=== PATIENT | male | born 1960 | race African-American/Black ===

== ENCOUNTER 2016-06-10 18:11 | Emergency (ER) | payer BC ==
[2016-06-10 18:15] VITALS: BP 149/89
--- NOTE | 2016-06-10 18:39 | ER Document Report ---
ED Medical Screen (RME) - General Stated Complaint: URINARY ISSUE Mode of Arrival: Ambulatory Information source: Patient Notes: Patient reports having blood draining from his penis earlier today. Since then patient's had pain with urination. Patient does complain of pressure to right back area for the past week. hx: Kidney stones I have greeted and performed a rapid initial assessment of this patient. A comprehensive ED assessment and evaluation of the patient, analysis of test results and completion of the medical decision making process will be conducted by additional ED providers. TRAVEL OUTSIDE OF THE [place] IN LAST 30 DAYS: No - Related Data Allergies/Adverse Reactions: No Known Allergies Allergy (Verified 06/10/16 18:37) Past Medical History - Social History Family history: Arthritis, CAD, CVA, DM, Hyperlipidemia, Hypertension - Past Medical History Cardiac Medical History: Reports: Hx Hypercholesterolemia, Hx Hypertension Pulmonary Medical History: Denies: Hx Tuberculosis Neurological Medical History: Reports: Hx Migraine GI Medical History: Reports: Hx Gastritis, Hx Ulcer - 10 years Musculoskeltal Medical History: Reports Hx Arthritis, Reports Hx Musculoskeletal Trauma - shoulder knee injuries Traumatic Medical History: Reports: Hx Fractures - shoulder Past Surgical History: Reports: Hx Orthopedic Surgery - right knee surgery x3. Denies: Hx Appendectomy, Hx Bowel Surgery, Hx Cholecystectomy, Hx Coronary Artery Bypass Graft, Hx Gastric Bypass Surgery, Hx Herniorrhaphy, Hx Tonsillectomy - Immunizations Immunizations up to date: Yes Hx Diphtheria, Pertussis, Tetanus Vaccination: Yes Physical Exam - Vital signs Vitals: Temp Pulse Resp BP Pulse Ox 98.1 F 82 18 149/89 H 97 06/10/16 18:14 06/10/16 18:14 06/10/16 18:14 06/10/16 18:14 06/10/16 18:14 - Back Back: CVA tenderness - Right side Course - Vital Signs Vital signs: Temp Pulse Resp BP Pulse Ox 98.1 F 82 18 149/89 H 97 06/10/16 18:14 06/10/16 18:14 06/10/16 18:14 06/10/16 18:14 06/10/16 18:14
[2016-06-10 19:06] LABS: ABSOLUTE EOSINOPHILS # (AUTO) 0.1 10^3/uL (0.0-0.6); ABSOLUTE LYMPHOCYTES (AUTO) 1.8 10^3/uL (0.5-4.7); ABSOLUTE MONOCYTES (AUTO) 0.4 10^3/uL (0.1-1.4); ABSOLUTE NEUT (AUTO) 2.3 10^3/uL (1.7-8.2); BASOPHILS % (AUTO) 0.5 % (0-2); EOSINOPHILS % (AUTO) 1.7 % (0-6); HEMATOCRIT 39.9 % (37.9-51.0); HEMOGLOBIN 13.6 g/dL (13.5-17.0); HGB HCT DIFFERENCE 0.9; LYMPHOCYTES % (AUTO) 39.5 % (13-45); MEAN CORPUSCULAR HEMOGLOBIN 29.5 pg (27.0-33.4); MEAN CORPUSCULAR HGB CONC 34.1 g/dL (32.0-36.0); MEAN CORPUSCULAR VOLUME 86 fl (80-97); MONOCYTES % (AUTO) 9.1 % (3-13); RED BLOOD COUNT 4.62 10^6/uL (4.35-5.55); RED CELL DISTRIBUTION WIDTH 14.2 % (11.5-14.0); SEGMENTED NEUTROPHILS % (AUTO) 49.2 % (42-78); WHITE BLOOD COUNT 4.7 10^3/uL (4.0-10.5)
[2016-06-10 19:16] LABS: APPEARANCE,URINE CLEAR; BILIRUBIN,URINE NEGATIVE (NEGATIVE); GLUCOSE, URINE NEGATIVE (NEGATIVE); KETONES,URINE NEGATIVE (NEGATIVE); LEUKOCYTE ESTERASE,URINE NEGATIVE (NEGATIVE); NITRITE,URINE NEGATIVE (NEGATIVE); PROTEIN,URINE NEGATIVE (NEGATIVE); URINE SPECIFIC GRAVITY 1.014
[2016-06-10 19:26] LABS: ALANINE AMINOTRANSFERASE 16 U/L (21-72); ALBUMIN 4.2 g/dL (3.5-5.0); ALKALINE PHOSPHATASE 136 U/L (38-126); ANION GAP 7 (5-19); ASPARTATE AMINO TRANSFERASE 15 U/L (17-59); BILIRUBIN,TOTAL 0.6 mg/dL (0.2-1.3); BLOOD UREA NITROGEN 10 mg/dL (7-20); CALCIUM 9.6 mg/dL (8.4-10.2); CARBON DIOXIDE 30 mmol/L (22-30); CHLORIDE 107 mmol/L (98-107); CREATININE RESULT 0.86 mg/dL (0.52-1.25); GLUCOSE 95 mg/dL (75-110); POTASSIUM 3.9 mmol/L (3.6-5.0); TOTAL PROTEIN 7.5 g/dL (6.3-8.2)
[2016-06-10 19:34] LABS: PROTHROMBIN TIME 13.7 SEC (11.4-15.4)
[2016-06-10 19:35] LABS: PARTIAL THROMBOPLASTIN TIME 28.3 SEC (23.5-35.8)
[2016-06-10 20:36] LABS: CHLAM PCR NOT DETECTED (NOT DETECT)
--- NOTE | 2016-06-10 23:09 | ER Document Report ---
ED General - General Chief Complaint: Urinary Problem Stated Complaint: URINARY ISSUE Mode of Arrival: Ambulatory Notes: Patient is a 56-year-old male with past history of hypertension and kidney stones who presents after urinating blood earlier today. Denies a history of similar symptoms in the past. Denies any complaints at time of my assessment. Denies any abdominal pain, flank pain, fever, or dysuria. Denies any penile lesions, testicular pain. He has not seen his primary care doctor regarding today's concerns. Nothing improves or worsens his symptoms. TRAVEL OUTSIDE OF THE [place] IN LAST 30 DAYS: No - Related Data Allergies/Adverse Reactions: No Known Allergies Allergy (Verified 06/10/16 18:37) Past Medical History - General Information source: Patient - Social History Smoking Status: Current Every Day Smoker Chew tobacco use (# tins/day): No Frequency of alcohol use: None Drug Abuse: None Lives with: Spouse/Significant other Family History: Arthritis, CAD, CVA, DM, Hyperlipidemia, Hypertension Patient has suicidal ideation: No Patient has homicidal ideation: No - Past Medical History Cardiac Medical History: Reports: Hx Hypercholesterolemia, Hx Hypertension Pulmonary Medical History: Denies: Hx Tuberculosis Neurological Medical History: Reports: Hx Migraine Renal/ Medical History: Denies: Hx Peritoneal Dialysis GI Medical History: Reports: Hx Gastritis, Hx Ulcer - 10 years Musculoskeltal Medical History: Reports Hx Arthritis, Reports Hx Musculoskeletal Trauma - shoulder knee injuries Traumatic Medical History: Reports: Hx Fractures - shoulder Past Surgical History: Reports: Hx Orthopedic Surgery - right knee surgery x3. Denies: Hx Appendectomy, Hx Bowel Surgery, Hx Cholecystectomy, Hx Coronary Artery Bypass Graft, Hx Gastric Bypass Surgery, Hx Herniorrhaphy, Hx Tonsillectomy - Immunizations Immunizations up to date: Yes Hx Diphtheria, Pertussis, Tetanus Vaccination: Yes Hx Pneumococcal Vaccination: 04/17/00 Review of Systems - Review of Systems Notes: Constitutional: Negative for fever. HENT: Negative for sore throat. Eyes: Negative for visual changes. Cardiovascular: Negative for chest pain. Respiratory: Negative for shortness of breath. Gastrointestinal: Negative for abdominal pain, vomiting or diarrhea. Genitourinary: Negative for dysuria. Positive for hematuria Musculoskeletal: Negative for back pain. Skin: Negative for rash. Neurological: Negative for headaches, weakness or numbness. 10 point ROS negative except as marked above and in HPI. Physical Exam - Vital signs Vitals: Temp Pulse Resp BP Pulse Ox 98.1 F 82 18 149/89 H 97 06/10/16 18:14 06/10/16 18:14 06/10/16 18:14 06/10/16 18:14 06/10/16 18:14 Interpretation: Hypertensive Notes: PHYSICAL EXAMINATION: GENERAL: Well-appearing, well-nourished and in no acute distress. HEAD: Atraumatic, normocephalic. EYES: Pupils equal round and reactive to light, extraocular movements intact, sclera anicteric, conjunctiva are normal. ENT: nares patent, oropharynx clear without exudates. Moist mucous membranes. NECK: Normal range of motion, supple without lymphadenopathy LUNGS: Breath sounds clear to auscultation bilaterally and equal. No wheezes rales or rhonchi. HEART: Regular rate and rhythm without murmurs ABDOMEN: Soft, nontender, normoactive bowel sounds. No guarding, no rebound. No masses appreciated. : No penile lesions or testicular tenderness. EXTREMITIES: Normal range of motion, no pitting or edema. No cyanosis. NEUROLOGICAL: No focal neurological deficits. Moves all extremities spontaneously and on command. PSYCH: Normal mood, normal affect. SKIN: Warm, Dry, normal turgor, no rashes or lesions noted. Course - Re-evaluation Re-evalutation: 06/10/16 23:06 Patient presents with hematuria but no additional complaints. His laboratories are unremarkable and only shows a mild amount of blood in his urine. Gonorrhea Chlamydia negative. He has no symptoms to suggest an acute nephrolithiasis or pyelonephritis. No abdominal pain on exam to suggest an acute aortic dissection or aneurysmal fistula as the likely etiology of his presentation. He does need to follow-up with urology and I have included a referral to exclude bladder malignancy as the etiology.At this time will discharge with return precautions and follow-up recommendations. Verbal discharge instructions given a the bedside and opportunity for questions given. Medication warnings reviewed. Patient is in agreement with this plan and has verbalized understanding of return precautions and the need for primary care follow-up in the next 24-72 hours. - Vital Signs Vital signs: Temp Pulse Resp BP Pulse Ox 97.4 F 80 20 149/89 H 98 06/10/16 23:17 06/10/16 23:17 06/10/16 23:17 06/10/16 18:14 06/10/16 23:17 - Laboratory Result Diagrams: 06/10/16 18:14 06/10/16 18:14 Laboratory results interpreted by me: 06/10/16 06/10/16 06/10/16 18:14 18:14 18:15 RDW 14.2 H AST 15 L ALT 16 L Alkaline Phosphatase 136 H Urine Urobilinogen 4.0 H Discharge - Discharge Clinical Impression: Hematuria Condition: Good Disposition: HOME, SELF-CARE Additional Instructions: Your labs today did not show an obvious cause for hematuria which is also known as blood in your urine. You need to follow-up with the urologist for further evaluation. Please also follow up with your primary care doctor in the next 1- 2 days. Return for worsening bleeding, abdominal pain, vomiting, fever greater than 100.4F, or any other symptoms that are worrisome to you. Referrals: ANNI PATEL MD [Primary Care Provider] - Follow up in 3-5 days LIZBETH OQUENDO MD [ACTIVE STAFF] - 06/13/16
== END 2016-06-10 23:17 | disposition home or self-care (01) ==
LOC: ER 18:11
DX: R31.0 Gross hematuria (principal); Z87.442 Personal history of urinary calculi; I10 Essential (primary) hypertension; F17.200 Nicotine dependence, unspecified, uncomplicated
CPT/HCPCS: 36415; 80053; 81001; 85025; 85610; 85730; 87491; 87591; 99283

== ENCOUNTER 2016-08-25 22:39 | Emergency (ER) | payer BC ==
[2016-08-25 22:54] VITALS: BP 134/72
== END 2016-08-26 00:39 | disposition left against medical advice (07) ==
LOC: ER 22:39
DX: Z53.21 Procedure and treatment not carried out due to patient leaving prior to being seen by health care provider (principal)

== ENCOUNTER 2016-09-04 22:17 | Emergency (ER) | payer BC | END 2016-09-04 23:22 | disposition left against medical advice (07) | LOC: ER 22:17 | DX: Z53.9 Procedure and treatment not carried out, unspecified reason (principal); M79.606 Pain in leg, unspecified ==

== ENCOUNTER 2017-01-25 03:59 | Emergency (ER) | payer BC ==
[2017-01-25] MEDS ORDERED: KETOROLAC TROMETHAMINE 10 MG TABLET PO ONE (04:55)
[2017-01-25] MEDS ORDERED: METAXALONE 800 MG TABLET PO ONE (04:55)
--- NOTE | 2017-01-25 05:00 | ER Document Report ---
ED General - General Chief Complaint: Other Stated Complaint: BODY PAIN Time Seen by Provider: 01/25/17 04:45 Notes: Patient is a 56-year-old male who presents with complaint of pain in the muscles of his thighs, shoulders, arms, upper back. Patient says he has a history of fibromyalgia his pain feels similar but that he is going through a more severe flare than usual. He has not been working on that he. He has been drinking water. He denies any concerns for dehydration. He denies any recent injuries or trauma. Says he is on Lyrica and also is taking Motrin but he still has pain despite this. He does have a history of normal renal function and denies any history of problems with his kidneys other than previous kidney stones. He has no recent fevers or infections. He has no other complaints at this time. TRAVEL OUTSIDE OF THE [place] IN LAST 30 DAYS: No - Related Data Allergies/Adverse Reactions: No Known Allergies Allergy (Verified 01/25/17 04:00) Past Medical History - Social History Smoking Status: Current Every Day Smoker Chew tobacco use (# tins/day): No Frequency of alcohol use: None Drug Abuse: None Family History: Arthritis, CAD, CVA, DM, Hyperlipidemia, Hypertension Patient has suicidal ideation: No Patient has homicidal ideation: No - Past Medical History Cardiac Medical History: Reports: Hx Hypercholesterolemia, Hx Hypertension Pulmonary Medical History: Denies: Hx Tuberculosis Neurological Medical History: Reports: Hx Migraine Renal/ Medical History: Denies: Hx Peritoneal Dialysis GI Medical History: Reports: Hx Gastritis, Hx Ulcer - 10 years Musculoskeltal Medical History: Reports Hx Arthritis - fibromyalgia, Reports Hx Musculoskeletal Trauma - shoulder knee injuries Traumatic Medical History: Reports: Hx Fractures - shoulder Past Surgical History: Reports: Hx Orthopedic Surgery - right knee surgery x3. Denies: Hx Appendectomy, Hx Bowel Surgery, Hx Cholecystectomy, Hx Coronary Artery Bypass Graft, Hx Gastric Bypass Surgery, Hx Herniorrhaphy, Hx Tonsillectomy - Immunizations Immunizations up to date: Yes Hx Diphtheria, Pertussis, Tetanus Vaccination: Yes Hx Pneumococcal Vaccination: 04/17/00 Review of Systems - Review of Systems Notes: My Normal Review Basic REVIEW OF SYSTEMS: CONSTITUTIONAL : Denies fever, chills, or sweats. Denies recent illness. EENT: Denies eye, ear, throat, or mouth pain or symptoms. Denies nasal or sinus congestion. RESPIRATORY: Denies cough, cold, or chest congestion. Denies shortness of breath, difficulty breathing, or wheezing. GASTROINTESTINAL: Denies abdominal pain. Denies nausea, vomiting, or diarrhea. Denies constipation. Last BM: MUSCULOSKELETAL: Muscular pain. SKIN: Denies rash or skin lesions. NEUROLOGICAL: Denies altered mental status or loss of consciousness. Denies headache. Denies weakness or paralysis or loss of use of either side. Denies problems with gait or speech. Denies sensory or motor loss. ALL OTHER SYSTEMS REVIEWED AND NEGATIVE. Physical Exam - Vital signs Vitals: Temp Pulse Resp BP Pulse Ox 99.0 F 100 18 146/68 H 96 01/25/17 04:05 01/25/17 04:05 01/25/17 04:05 01/25/17 04:05 01/25/17 04:05 - Notes Notes: General Appearance: Well nourished, alert, cooperative, no acute distress, mild obvious discomfort. Vitals: reviewed, See vital signs table. Head: no swelling or tenderness to the head Eyes: PERRL, EOMI, Conjuctiva clear Mouth: No decreasd moisture Lungs: No wheezing, No rales, No rhonci, No accessory muscle use, good air exchange bilaterally. Heart: Normal rate, Regular rythm, No murmur, no rub Abdomen: Normal BS, soft, No rigidity, No abdominal tenderness, No guarding, no rebound, no abdominal masses, no organomegaly Extremities: strength 5/5 in all extremities, good pulses in all extremities, patient has pain to palpation in the thigh muscles as well as the shoulder girdle and upper arms. No pain into the knees or elbows. Some pain to the shoulders. No swelling or warmth to the joints. Skin: warm, dry, appropriate color, no rash Neuro: speech clear, oriented x 3, normal affect, responds appropriately to questions. Course - Re-evaluation Re-evalutation: 01/25/17 05:15 Patient does have a history of 5 myalgia and pain sounds very consistent with that. He has no signs of infection. He will be given a dose of Toradol. I will also place and Skelaxin. Encouraged him follow-up closely with his primary care doctor for reevaluation the next 1-2 days. Patient agrees with plan will be discharged home. Dictation of this chart was performed using voice recognition software; therefore, there may be some unintended grammatical errors. - Vital Signs Vital signs: Temp Pulse Resp BP Pulse Ox 99.0 F 100 18 146/68 H 96 01/25/17 04:05 01/25/17 04:05 01/25/17 04:06 01/25/17 04:05 01/25/17 04:05 Discharge - Discharge Clinical Impression: Body aches Condition: Good Disposition: HOME, SELF-CARE Additional Instructions: Please take the medication as prescribed. Please follow-up with your primary care doctor for reevaluation in 2-3 days. Please return to the ER immediately if you have fevers, vomiting, or feel unwell. Please drink lots of water and stay well-hydrated. Prescriptions: Metaxalone [Skelaxin 800 mg Tablet] 800 mg PO ASDIR PRN #20 tablet PRN Reason: Forms: Return to Work Referrals: ANNI PATEL MD [Primary Care Provider] - 01/27/17
[2017-01-25 05:47] VITALS: BP 151/79
== END 2017-01-25 05:45 | disposition home or self-care (01) ==
LOC: ER 03:59
DX: M79.1 Myalgia (principal); M79.652 Pain in left thigh; M79.651 Pain in right thigh; Z79.899 Other long term (current) drug therapy; F17.200 Nicotine dependence, unspecified, uncomplicated
CPT/HCPCS: 99283; J3490 ×2

== ENCOUNTER 2017-04-27 13:29 | Emergency (ER) | payer BC ==
[2017-04-27 13:56] VITALS: BP 144/75
== END 2017-04-27 14:04 | disposition left against medical advice (07) ==
LOC: ER 13:29
DX: Z53.21 Procedure and treatment not carried out due to patient leaving prior to being seen by health care provider (principal); R51 Headache

== ENCOUNTER 2017-06-12 00:57 | Emergency (ER) | payer BC ==
[2017-06-12] MEDS ORDERED: KETOROLAC TROMETHAMINE 60 MG/2 ML SDV IM ONE (01:44)
[2017-06-12] MEDS ORDERED: LIDOCAINE 5% (700 MG) TRANSDERMAL ADH..PATCH TP ONE (01:45)
--- NOTE | 2017-06-12 02:33 | RADIOLOGY REPORT (SQ) ---
EXAM DESCRIPTION: HIP BILATERAL CLINICAL HISTORY: bilateral hip pain, worse on right COMPARISON: None. FINDINGS: Single view of the pelvis and bilateral lateral views of the hips. No acute fracture or dislocation. Normal osseous mineralization. Degenerative change of the hips. Pelvic soft tissues are unremarkable. IMPRESSION: 1. No acute fracture identified. 2. Osteoarthritic change of the hips.
[2017-06-12] MEDS ORDERED: LIDOCAINE 5% (700 MG) TRANSDERMAL ADH..PATCH ONE (02:34)
--- NOTE | 2017-06-12 02:48 | ER Document Report ---
ED General - General Chief Complaint: Bilateral hip pain Stated Complaint: HIP PAIN Time Seen by Provider: 06/12/17 01:10 Notes: Patient is a 57-year-old male with a past medical history of fibromyalgia, chronic bilateral lower extremity pain who presents with 3-4 days of worsening pain to the bilateral hips. He states it is worse on the right. He does described as a constant, aching, throbbing pain. He states walking or moving worsens the pain. He has tried [id number] pain control without improvement as well as Lyrica which she is prescribed for fibromyalgia likewise which has not improved his symptoms. He denies any inciting event that worsened his pain. He has not seen his primary care doctor regarding today's concerns. He denies any associated weakness, numbness, inability to ambulate, bowel or bladder incontinence or urinary retention. TRAVEL OUTSIDE OF THE [place] IN LAST 30 DAYS: No - Related Data Allergies/Adverse Reactions: No Known Allergies Allergy (Verified 04/27/17 13:29) Past Medical History - General Information source: Patient - Social History Smoking Status: Never Smoker Chew tobacco use (# tins/day): No Frequency of alcohol use: None Drug Abuse: None Lives with: Family Family History: Arthritis, CAD, CVA, DM, Hyperlipidemia, Hypertension Patient has suicidal ideation: No Patient has homicidal ideation: No - Past Medical History Cardiac Medical History: Reports: Hx Hypercholesterolemia, Hx Hypertension Pulmonary Medical History: Denies: Hx Tuberculosis Neurological Medical History: Reports: Hx Migraine Renal/ Medical History: Denies: Hx Peritoneal Dialysis GI Medical History: Reports: Hx Gastritis, Hx Ulcer - 10 years Musculoskeltal Medical History: Reports Hx Arthritis - fibromyalgia, Reports Hx Musculoskeletal Trauma - shoulder knee injuries Traumatic Medical History: Reports: Hx Fractures - shoulder Past Surgical History: Reports: Hx Orthopedic Surgery - right knee surgery x3. Denies: Hx Appendectomy, Hx Bowel Surgery, Hx Cholecystectomy, Hx Coronary Artery Bypass Graft, Hx Gastric Bypass Surgery, Hx Herniorrhaphy, Hx Tonsillectomy - Immunizations Immunizations up to date: Yes Hx Diphtheria, Pertussis, Tetanus Vaccination: Yes Hx Pneumococcal Vaccination: 04/17/00 Review of Systems - Review of Systems Notes: Constitutional: Negative for fever. HENT: Negative for sore throat. Eyes: Negative for visual changes. Cardiovascular: Negative for chest pain. Respiratory: Negative for shortness of breath. Gastrointestinal: Negative for abdominal pain, vomiting or diarrhea. Genitourinary: Negative for dysuria. Musculoskeletal: Positive for bilateral hip pain worse in the right. Skin: Negative for rash. Neurological: Negative for headaches, weakness or numbness. 10 point ROS negative except as marked above and in HPI. Physical Exam - Vital signs Vitals: Temp Pulse Resp BP Pulse Ox 98.8 F 98 16 156/83 H 98 06/12/17 01:02 06/12/17 01:02 06/12/17 01:02 06/12/17 01:02 06/12/17 01:02 Interpretation: Hypertensive Notes: PHYSICAL EXAMINATION: GENERAL: Well-appearing, well-nourished and in no acute distress. HEAD: Atraumatic, normocephalic. EYES: Pupils equal round and reactive to light, extraocular movements intact, sclera anicteric, conjunctiva are normal. ENT: nares patent, oropharynx clear without exudates. Moist mucous membranes. NECK: Normal range of motion, supple without lymphadenopathy LUNGS: Breath sounds clear to auscultation bilaterally and equal. No wheezes rales or rhonchi. HEART: Regular rate and rhythm without murmurs ABDOMEN: Soft, nontender, normoactive bowel sounds. No guarding, no rebound. No masses appreciated. Back: No midline spinal tenderness, step-offs or deformities EXTREMITIES: Normal range of motion, no pitting or edema. No cyanosis. Pain with axial loading of the bilateral hips worse on the right. NEUROLOGICAL: No focal neurological deficits. Moves all extremities spontaneously and on command. PSYCH: Normal mood, normal affect. SKIN: Warm, Dry, normal turgor, no rashes or lesions noted. Course - Re-evaluation Re-evalutation: 06/12/17 02:44 Clinical history appears to be most consistent with chronic osteoarthritis of the bilateral hips worse on the right. Physical examination does not show any swelling or erythema to the hips, no deformity or leg shortening. Patient is able to ambulate without difficulty. Vitals otherwise within normal limits. Hip x-rays show osteoarthritis changes although no acute fracture or dislocation for which I had a very low clinical suspicion. I have instructed the patient follow-up with his primary care physician regarding this chronic issue and recommended [id number] analgesics as needed for pain. At this time will discharge with return precautions and follow-up recommendations. Verbal discharge instructions given a the bedside and opportunity for questions given. Medication warnings reviewed. Patient is in agreement with this plan and has verbalized understanding of return precautions and the need for primary care follow-up in the next 24-72 hours. - Vital Signs Vital signs: Temp Pulse Resp BP Pulse Ox 98.8 F 98 16 156/83 H 98 06/12/17 01:02 06/12/17 01:02 06/12/17 01:02 06/12/17 01:02 06/12/17 01:02 - Diagnostic Test Radiology reviewed: Image reviewed, Reports reviewed Radiology results interpreted by me: 06/12/17 02:45 Pelvis and hip x-ray: No acute fracture or dislocation. Discharge - Discharge Clinical Impression: Hip pain, bilateral Osteoarthritis Qualifiers: Osteoarthritis location: hip Osteoarthritis type: unspecified Laterality: bilateral Qualified Code(s): M16.0 - Bilateral primary osteoarthritis of hip Condition: Good Disposition: HOME, SELF-CARE Additional Instructions: Your hip pain is likely due to arthritis. Follow-up with your primary care doctor regarding this issue and may also need a referral to orthopedic surgery for further evaluation and treatment. May continue take Tylenol and ibuprofen as needed for your pain. Return for any additional symptoms or concerns you may have. Referrals: ANNI PATEL MD [Primary Care Provider] - Follow up as needed
[2017-06-12 02:50] VITALS: BP 150/80
== END 2017-06-12 02:51 | disposition home or self-care (01) ==
LOC: ER 00:57
DX: M16.0 Bilateral primary osteoarthritis of hip (principal); M79.7 Fibromyalgia; Z79.899 Other long term (current) drug therapy; M25.551 Pain in right hip; M25.552 Pain in left hip; I10 Essential (primary) hypertension
CPT/HCPCS: 99283; 96372; 73522; J1885

== ENCOUNTER 2017-07-31 14:18 | Emergency (ER) | payer BC ==
[2017-07-31 14:31] VITALS: BP 160/67
[2017-07-31] MEDS ORDERED: ASPIRIN 325 MG TABLET PO ONE (14:41)
--- NOTE | 2017-07-31 14:42 | ER Document Report ---
ED Medical Screen (RME) - General Chief Complaint: Chest Pain Stated Complaint: CHEST PAIN, LEFT ARM NUMBNESS Time Seen by Provider: 07/31/17 14:41 Notes: Patient with chest pain and left arm pain today. States he had a normal stress test about 4 years ago but no other workups. Patient does smoke and has high blood pressure. He denies any previous cardiac history. TRAVEL OUTSIDE OF THE [place] IN LAST 30 DAYS: No - Related Data Allergies/Adverse Reactions: No Known Allergies Allergy (Verified 07/31/17 14:35) Past Medical History - Social History Frequency of alcohol use: None Drug Abuse: None Family history: Arthritis, CAD, CVA, DM, Hyperlipidemia, Hypertension - Past Medical History Cardiac Medical History: Reports: Hx Hypercholesterolemia, Hx Hypertension Pulmonary Medical History: Denies: Hx Tuberculosis Neurological Medical History: Reports: Hx Migraine Renal/ Medical History: Denies: Hx Peritoneal Dialysis GI Medical History: Reports: Hx Gastritis, Hx Ulcer - 10 years Musculoskeltal Medical History: Reports Hx Arthritis - fibromyalgia, Reports Hx Musculoskeletal Trauma - shoulder knee injuries Traumatic Medical History: Reports: Hx Fractures - shoulder Past Surgical History: Reports: Hx Orthopedic Surgery - right knee surgery x3. Denies: Hx Appendectomy, Hx Bowel Surgery, Hx Cholecystectomy, Hx Coronary Artery Bypass Graft, Hx Gastric Bypass Surgery, Hx Herniorrhaphy, Hx Tonsillectomy - Immunizations Immunizations up to date: Yes Hx Diphtheria, Pertussis, Tetanus Vaccination: Yes Physical Exam - Vital signs Vitals: Temp Pulse Resp BP Pulse Ox 98.2 F 99 16 160/67 H 97 07/31/17 14:30 07/31/17 14:30 07/31/17 14:30 07/31/17 14:30 07/31/17 14:30 Course - Vital Signs Vital signs: Temp Pulse Resp BP Pulse Ox 98.2 F 99 16 160/67 H 97 07/31/17 14:30 07/31/17 14:30 07/31/17 14:30 07/31/17 14:30 07/31/17 14:30 Doctor's Discharge - Discharge Referrals: ELENI MICHAELS MD [Primary Care Provider] - Follow up as needed
[2017-07-31 15:01] LABS: ABSOLUTE LYMPHOCYTES (AUTO) 1.4 10^3/uL (0.5-4.7); ABSOLUTE MONOCYTES (AUTO) 0.5 10^3/uL (0.1-1.4); ABSOLUTE NEUT (AUTO) 2.3 10^3/uL (1.7-8.2); BASOPHILS % (AUTO) 0.2 % (0-2); EOSINOPHILS % (AUTO) 0.9 % (0-6); HEMATOCRIT 36.6 % (37.9-51.0); HEMOGLOBIN 12.5 g/dL (13.5-17.0); LYMPHOCYTES % (AUTO) 32.9 % (13-45); MEAN CORPUSCULAR HEMOGLOBIN 27.8 pg (27.0-33.4); MEAN CORPUSCULAR HGB CONC 34.1 g/dL (32.0-36.0); MEAN CORPUSCULAR VOLUME 82 fl (80-97); MONOCYTES % (AUTO) 10.9 % (3-13); PLATELET COUNT 189 10^3/uL (150-450); RED BLOOD COUNT 4.49 10^6/uL (4.35-5.55); RED CELL DISTRIBUTION WIDTH 14.2 % (11.5-14.0); SEGMENTED NEUTROPHILS % (AUTO) 55.1 % (42-78); TOTAL CELLS COUNTED % (AUTO) 100 %; WHITE BLOOD COUNT 4.2 10^3/uL (4.0-10.5)
--- NOTE | 2017-07-31 15:11 | EKG REPORT ---
SEVERITY:- BORDERLINE ECG - SINUS RHYTHM BORDERLINE T WAVE ABNORMALITIES : Confirmed by: Roby Toussaint 31-Jul-2017 15:10:51
[2017-07-31 15:24] LABS: ALANINE AMINOTRANSFERASE 23 U/L (21-72); ALBUMIN 3.6 g/dL (3.5-5.0); ALKALINE PHOSPHATASE 163 U/L (38-126); ANION GAP 6 (5-19); ASPARTATE AMINO TRANSFERASE 15 U/L (17-59); BILIRUBIN,DIRECT 0.1 mg/dL (0.0-0.4); BILIRUBIN,TOTAL 0.6 mg/dL (0.2-1.3); BLOOD UREA NITROGEN 9 mg/dL (7-20); CALCIUM 9.5 mg/dL (8.4-10.2); CARBON DIOXIDE 31 mmol/L (22-30); CHLORIDE 105 mmol/L (98-107); GLUCOSE 145 mg/dL (75-110); POTASSIUM 3.7 mmol/L (3.6-5.0); SODIUM 141.6 mmol/L (137-145); TOTAL PROTEIN 6.5 g/dL (6.3-8.2)
--- NOTE | 2017-07-31 15:26 | RADIOLOGY REPORT (SQ) ---
EXAM DESCRIPTION: CHEST 2 VIEWS COMPLETED DATE/TIME: 07/31/2017 3:07 pm REASON FOR STUDY: cp COMPARISON: 12/29/2015 EXAM PARAMETERS: NUMBER OF VIEWS: two views TECHNIQUE: Digital Frontal and Lateral radiographic views of the chest acquired. RADIATION DOSE: NA LIMITATIONS: none FINDINGS: LUNGS AND PLEURA: No acute opacities, masses or pneumothorax. No pleural effusion. MEDIASTINUM AND HILAR STRUCTURES: No masses or contour abnormalities. HEART AND VASCULAR STRUCTURES: Heart normal size. No evidence for failure. BONES: No acute findings. HARDWARE: None in the chest. OTHER: No other significant finding. IMPRESSION: NO ACUTE RADIOGRAPHIC FINDING IN THE CHEST. TECHNICAL DOCUMENTATION: JOB ID: [id number] [place]-72 2010 [employer]- All Rights Reserved Reading location - IP/workstation name: [employer]
== END 2017-07-31 16:45 | disposition left against medical advice (07) ==
LOC: ER 14:18
DX: R07.9 Chest pain, unspecified (principal); M79.602 Pain in left arm; F17.200 Nicotine dependence, unspecified, uncomplicated; E78.00 Pure hypercholesterolemia, unspecified; I10 Essential (primary) hypertension
CPT/HCPCS: 36415; 71046; 80053; 84484; 85025; 93005; 93010; 99281